=== PATIENT | male | born 1990 | race Caucasian/White ===

== ENCOUNTER 2020-02-09 15:14 | Emergency (ER) | payer OTHER ==
[2020-02-09] MEDS ORDERED: HYDROmorphone 0.5 MG/0.5 ML Syringe IM ONE (15:48)
[2020-02-09] MEDS ORDERED: predniSONE 10 MG Tab PO ONE (15:48)
--- NOTE | 2020-02-09 15:54 | EDM.PDOC ---
ED HPI GENERAL MEDICAL PROBLEM - General Chief Complaint: Lower Extremity Injury/Pain Stated Complaint: RT ANKLE PAIN Time Seen by Provider: 02/09/20 15:41 Source of Information: Reports: Patient, RN Notes Reviewed History Limitations: Reports: No Limitations - History of Present Illness INITIAL COMMENTS - FREE TEXT/NARRATIVE: Patient is a 29-year-old male who presents to the ED for evaluation of right foot and ankle pain. Patient states that while he was working this week, he rolled his ankle "a couple of times "he was wearing a work boot, so he did have pretty good stabilization of the joint. Patient states that his joint did not start hurting until Monday. Patient notes that the pain does worsen with weightbearing, and has definitely increased the last day and a half. There is quite a bit of swelling noted to the foot and ankle, and it does feel to be warm to the touch. Patient does not have a history of gout, but states it does not feel like abnormal sprained ankle. He denies any recent illness, or any other sick-like symptoms. He has been utilizing [id number] Tylenol, and icing the area and nothing is really providing much pain relief. Treatments CONTINUOUS PROCESS TANNER ROTARY DRUM: Reports: Acetaminophen, Other (see below) Right Ankle Pain Score (Numeric/FACES): 8 - Related Data Allergies Allergy/AdvReac Type Severity Reaction Status Date / Time No Known Allergies Allergy Verified 02/09/20 15:36 Home Meds: Home Meds Acetaminophen/HYDROcodone [[place] 325-5 MG] 1 tab PO Q6H PRN #12 tablet 02/09/20 [Rx] predniSONE 20 mg PO BID #12 tab 02/09/20 [Rx] Past Medical History - Past Health History Medical/Surgical History: Denies Medical/Surgical History Musculoskeletal History: Reports: Other (See Below) Other Musculoskeletal History: right ankle injuries, torn ligaments to right ankle Social & Family History - Tobacco Use Smoking Status *Q: Current Some Day Smoker Years of Tobacco use: 2 Packs/Tins Daily: 0 - Caffeine Use Caffeine Use: Reports: Coffee, Energy Drinks, Soda - Recreational Drug Use Recreational Drug Use: No Review of Systems - Review of Systems Review Of Systems: Comprehensive ROS is negative, except as noted in HPI. ED EXAM, GENERAL - Physical Exam Exam: See Below Exam Limited By: No Limitations General Appearance: Alert, WD/WN, No Apparent Distress Respiratory/Chest: No Respiratory Distress, Lungs Clear, Normal Breath Sounds, No Accessory Muscle Use, Chest Non-Tender Cardiovascular: Normal Peripheral Pulses, Regular Rate, Rhythm, No Murmur Peripheral Pulses: 3+: Dorsalis Pedis (L), Dorsalis Pedis (R) Extremities: Normal Inspection (swelling and erythema noted to right ankle and dorsal foot), Normal Range of Motion, Normal Capillary Refill Neurological: Alert, Oriented, Normal Cognition, No Motor/Sensory Deficits Psychiatric: Normal Affect, Normal Mood Skin Exam: Warm, Dry, Intact, No Rash, Erythema (to right ankle/foot) Course - Vital Signs Last Recorded V/S: Last Vital Signs Temp 98.5 F 02/09/20 15:31 Pulse 109 H 02/09/20 15:31 Resp 18 02/09/20 15:31 BP 161/82 H 02/09/20 15:31 Pulse Ox 96 02/09/20 15:31 - Re-Assessments/Exams Free Text/Narrative Re-Assessment/Exam: 02/09/20 15:52 Patient presents to the ED for evaluation of his right ankle injury. Due to the warmth from the joint, and erythema, it is likely that this is more gout in nature, then musculoskeletal injury. Patient will be treated as such. He will be started on prednisone in the ER, with a prescription sent to the [place] pharmacy and [facility] can fill tomorrow. He will be discharged home with other general recommendations. Departure - Departure Time of Disposition: 15:54 Disposition: Home, Self-Care 01 Condition: Good Clinical Impression: Gout of right ankle Qualifiers: Gout etiology: unspecified cause Chronicity: acute Qualified Code(s): M10.9 - Gout, unspecified - Discharge Information *PRESCRIPTION DRUG MONITORING PROGRAM REVIEWED*: Yes *COPY OF PRESCRIPTION DRUG MONITORING REPORT IN PATIENT [place]: No Instructions: Low-Purine Eating Plan Referrals: PCP,None [Primary Care Provider] - Additional Instructions: You were evaluated in the ER today regarding your right ankle/foot pain. Clinical course is consistent with gout in nature. You will be started on prednisone, first dose was given in the ER. Please take 1 tab 2 times a day for the next 6 days. You were given a prescription for a strong pain medication, hydrocodone/ acetaminophen 5/325mg, please take 1 tab every 6 hours as needed for pain not relieved by Tylenol or ibuprofen alone. Please note this medication does contain Tylenol in it, so do not take more than 4000 mg in a 24-hour time span. These medications can be addictive, so please take as few as possible to achieve adequate pain control. These meds can also be quite constipating, recommend that you increase your oral fluid intake and take a stool softener like MiraLAX while taking these medications. Do not drive while taking this medication. Your medication was electronically prescribed to the [place] pharmacy located in the [employer] [facility]. Unfortunately they are not open as it is Monday; but they will be open tomorrow morning, you can go there and fill the prescriptions and take as directed. If your pain does not get much better after this conservative course, you should have the ankle x-rayed to rule out bony injury. However again your clinical course is more consistent with gout than a musculoskeletal injury in nature. Please return to the ER at any time if your symptoms should change or worsen. Sepsis Event Note (ED) - Evaluation Sepsis Screening Result: No Definite Risk - Focused Exam Vital Signs: Vital Signs Temp Pulse Resp BP Pulse Ox 02/09/20 15:31 98.5 F 109 H 18 161/82 H 96
== END 2020-02-09 16:20 | disposition home or self-care (01) ==
LOC: JD.ED 15:14
DX: M10.9 Gout, unspecified (principal); F17.210 Nicotine dependence, cigarettes, uncomplicated
CPT/HCPCS: 96372; 99283; J1170; J7512